=== PATIENT | male | born 1965 | race African-American/Black ===

== ENCOUNTER 2021-05-27 17:25 | Emergency (ER) | payer MEDICAID ==
[~2021-05-27] VITALS: Ht 175.3 cm; Wt 73.0 kg
[2021-05-27] MEDS ORDERED: CEPH500C3 PO (18:55)
[2021-05-27] MEDS ORDERED: SULF-261 PO (18:55)
[2021-05-27 19:26] VITALS: BP 131/74
== END 2021-05-27 19:33 | disposition home or self-care (01) ==
LOC: EMS 17:34
DX: S91.302A Unspecified open wound, left foot, initial encounter (principal); S31.30XA Unspecified open wound of scrotum and testes, initial encounter; L08.9 Local infection of the skin and subcutaneous tissue, unspecified; X58.XXXA Exposure to other specified factors, initial encounter; Y93.89 Activity, other specified; Y92.89 Other specified places as the place of occurrence of the external cause; Y99.8 Other external cause status
CPT/HCPCS: 99283; Z7502

== ENCOUNTER 2021-11-30 05:14 | Emergency (ER) | payer MEDICAID ==
[~2021-11-30] VITALS: Ht 177.8 cm; Wt 72.7 kg
[~2021-11-30 05:14] MED LIST: CEPH-558 PO; SULF-261 PO
[2021-11-30 06:38] VITALS: BP 159/105
[2021-11-30] MEDS ORDERED: DOXY-354 PO (06:58)
[2021-11-30] MEDS ORDERED: IBUPROFEN 600 MG TABLET PO ONE (07:00)
== END 2021-11-30 07:19 | disposition home or self-care (01) ==
LOC: EMS 05:16
DX: S31.30XA Unspecified open wound of scrotum and testes, initial encounter (principal); X58.XXXA Exposure to other specified factors, initial encounter; Y93.89 Activity, other specified; Y92.89 Other specified places as the place of occurrence of the external cause; Y99.8 Other external cause status
CPT/HCPCS: 99283